=== PATIENT | female | born 1950 | race Caucasian/White ===

== ENCOUNTER 2023-04-22 09:45 | Outpatient (CLI) | payer MEDICARE, BC, SELFPAY | END 2023-04-22 09:46 | disposition home or self-care (01) | LOC: NFLDREF 04-30 05:47 | PROVIDERS: Visit Provider Physician Assistant | DX: R31.9 Hematuria, unspecified (principal); N39.0 Urinary tract infection, site not specified | CPT/HCPCS: 87086; 87186 ==

== ENCOUNTER 2024-09-27 17:29 | Outpatient (CLI) | payer MEDICARE, BC, SELFPAY | END 2024-09-27 17:30 | disposition home or self-care (01) | LOC: NFLDUCREF 17:29 | DX: R10.32 Left lower quadrant pain (principal) | CPT/HCPCS: 87086 ==

== ENCOUNTER 2025-03-22 11:01 | Emergency (ER) | payer MEDICARE, BC, SELFPAY ==
--- OUTSIDE RECORDS SUMMARY | 2025-03-22 11:04 | XMS_ITS | Clinical Summary ---
Author Organization [facility] Address [address] [place] [address] Care Team Providers Care Supervisor Force Adjustment Name Role Phone Other-None Unavailable Unavailable Staff, Other Clinical Unavailable UnavailLiliana Bloom Primary Care Provider [phone] Allergies No known active allergies Medications ASPIRIN 81 MG TAB, DELAYED RELEASEIndicatio ns:Other abnormal glucose take 1 tablet (81 mg) by oral route once daily 0 8 Active CALCIUM 500 + D (D3) 500 MG-125 UNIT TAB take one daily 0 9 Active blood-glucose meterIndications :Controlled type 2 diabetes mellitus with complication, without long-term current use of insulin (HC) As directed. Dispense meter, test strips, lancets covered by pt ins. E11.9 NIDDM type II - Test 1 time/day 1 Device 0 Active nitroglycerin (NITROSTAT) 0.4 mg sublingual tabletIndication s:Stable angina PLACE 1 TABLET UNDER THE TONGUE EVERY 5 MINUTES NEEDED 25 Tablet 3 4 Active blood sugar diagnostic (Contour Next Test Strips) stripIndications :Controlled type 2 diabetes mellitus with complication, without long-term current use of insulin (HC) USE TO TEST BLOOD GLUCOSE ONCE DAILY DIRECTED. 100 Each 3 5 Active atenoloL (TENORMIN) 50 mg tabletIndication s:Stable angina,HTN (hypertension) Take 1 Tablet (50 mg) by mouth once daily. 90 Tablet 3 5 Active hydroCHLOROthiaz filomena 25 mg tabletIndication s:HTN (hypertension) Take 1 Tablet (25 mg) by mouth once daily. 90 Tablet 3 5 Active metFORMIN (GLUCOPHAGE XR) 500 mg Extended-Release tabletIndication s:Controlled type 2 diabetes mellitus with complication, without long-term current use of insulin (HC) Take 2 Tablets (1,000 mg) by mouth once daily with evening meal. 180 Tablet 3 5 Active omeprazole 20 mg tabletIndication s:Gastroesophage al reflux disease, unspecified whether esophagitis present Take 1 Tablet (20 mg) by mouth once daily before a meal. 90 Tablet 3 5 Active simvastatin (ZOCOR) 10 mg tabletIndication s:Controlled type 2 diabetes mellitus with complication, without long-term current use of insulin (HC) Take 1 Tablet (10 mg) by mouth at bedtime. 90 Tablet 2 5 Active lancetsIndicatio ns:Controlled type 2 diabetes mellitus with complication, without long-term current use of insulin (HC) Test 1 times per day. 200 Each 5 Active alendronate (FOSAMAX) 70 mg tabletIndication s:Osteopenia with high risk of fracture Take 1 Tablet (70 mg) by mouth once a week in the morning. Take on empty stomach with full glass of water. Do not lie down for 1 hr. 12 Tablet 3 5 Active losartan (COZAAR) 25 mg tabletIndication s:Primary hypertension Take 1 Tablet (25 mg) by mouth once daily. 90 Tablet 3 5 Active lisinopriL (PRINIVIL; ZESTRIL) 5 mg tabletIndication s:HTN (hypertension) Take 1 Tablet (5 mg) by mouth once daily. 30 Tablet 5 03/08/20 25 Discontinu ed(*Allerg ic/Adverse Rxn/Side Effects) Active Problems Problem Noted Date Diagnosed Date Chronic diarrhea 2024 Controlled type 2 diabetes m ellitus with complication, without long-term current use of insulin 01/07/2022 Osteopenia 11/28/2015 Overview (11/28/2015): On DXA 2010 Cardiac angina 11/16/2012 Primary hypertension 11/23/2006 Overview (11/23/2006): 1990 Esophageal reflux 11/23/2006 Overview (11/23/2006): 2001 Benign neoplasm of colon 11/23/2006 Overview (11/24/2021): Colonoscopy 06/2011 polyp, repeat in 5 years Colonoscopy 09/2016 polyp repeat in 5 years Colonoscopy 11/2021 diverticulosis, repeat in 7 years, colowrap Resolved Problems Problem Noted Date Diagnosed Date Resolved Date Diabetes mellitus due to und erlying condition with other specified complication, without long-term current use of insulin 05/05/2023 025 Other abnormal glucose 11/23/200610/06 Encounters Date Type Department Care Team Description 02/28/2025 1:45 PM CDT [facility] [address] [facility] [place] [facility] 02/28/2025 Travel 02/26/2025 Travel 02/06/2025 1:10 PM CDT Phone Office Visit [facility] [place] [address] Liliana Sen PA Medication Management (Patients has questions about fosamax after her bone scan.) 02/06/2025 Travel 02/01/2025 Travel 01/29/2025 Telephone [facility] [address] Liliana Sen PA Refill Request; MICROLET LANCETS 01/23/2025 9:00 AM CDT Ancillary Procedure [facility] [address] 01/23/2025 Travel 01/19/2025 Travel 01/17/2025 8:15 AM CDT Office Visit [facility] [place] [address] Liliana Sen PA Medicare ANNUAL (subsequent) Visit (Fasting) 01/17/2025 7:40 AM CDT Ancillary Procedure [facility] [place] [address] 01/17/2025 Travel 2025 Travel 01/04/2025 Refill Rust [address] [facility] [place] [address] Liliana Sen PA Refill Request (Lisinopril) 01/01/2025 Refill Rust [address] [place] [address] Liliana Sen PA Refill Request (Simvastatin) from Last 3 Months Immunizations Immunization Administration Dates Next Due AMB INFLUENZA IIV3 (AGE 65+ YRS) PF (Flu Clinic Only) 03/28/2019 Amb Influenza, Inactivated A IIV4 (Age 65+ Years) Preserv Free 03/19/2020 COVID-19 VACCINE SPIKEVAX (M ODERNA 50MCG/0.5ML) 12YO+ PFS 05/25/2023 COVID-19 vaccine (Pfizer-Bio NTech 30mcg/0.3mL) 12YO+ BIVALENT PF, MDV 04/06/2022 COVID-19 vaccine (Pfizer-Bio NTech 30mcg/0.3mL) 12YO+ SADIE-SUCROSE PF, MDV 11/05/2021 COVID-19 vaccine (Pfizer-Bio NTech 30mcg/0.3mL) PF, MDV 03/26/2021,09/17/2020,08/27/2020 Influenza A (H1N1), Inactivated 06/19/2009 Influenza, IIV3 (Age 6-35 mos) 03/09/2011,2008 Influenza, IIV3 (Age >=3 years) 03/11/20 15,03/14/2014,03/13/2013,03/07,03/03/2010 Influenza, Inactivated AIIV4 (Age 65+ Years) Preserv Free 03/05/2023,04/06/2022 Influenza, Inactivated IIV3 (Age 65+ Years) Preserv Free 03/01/2024 Influenza, Whole Virus 03/18/2017 Pneumococcal Conj 20-valent (Prevnar 20) 06/23/2024 Pneumococcal Poly,23-Valent (Pneumovax) 12/01/2017 Pneumococcal conj 13-Valent (Prevnar 13) 11/24/2016 RSV, Recombinant ADJ Reconst ituted (Arexvy 120MCG/0.5mL) 06/29/2023 Td (Age >=7 Years) 12/21/2003 Tdap 01/14/2023,11/16/2012 Zoster (Shingrix-RZV, recombinant) 12/10/2022, Zoster (Zostavax-ZVL, live) 02/25/2012 Family History Medical History Relation Name Comments Diabetes Brother 1 J Luis Other Brother 1 J Luis left leg below knee amputation due to amputation Pancreatitis Brother 1 J Luis Hypertension Brother 2 Thiago Crohn's disease Daughter 1 Laurence severe, 12 i nches of colon removed Preeclampsia Daughter 1 Laurence Crohn's disease Daughter 2 Marielena mild Nephrolithiasis Daughter 2 Marielena requiring bradley rgery Other Daughter 2 Marielena unusual cervica l cells Cancer-colon Father Diabetes Father Hypertension Father Cancer-breast Maternal Aunt Allergies Mother Dementia Mother Diabetes Mother Stroke Mother 10/2012 Other Other 1 first cousin wi th spondylosis Other Other 2 7 out of 9 sibl ings with HTN Cancer-breast Sister 1 Nayeli Diabetes Sister 1 Nayeli pre-diabetes Panic attack Sister 1 Nayeli Uterine cancer Sister 1 Nayeli chemo and rad iation Diabetes Sister 2 Lo 3 rd sister wit h diabetes Parkinsonism Sister 2 Lo Diabetes Sister 3 Antonella pre-diabetes Thyroid Disease Sister 3 Antonella 0ldest siste r Coronary artery disease Sister 4 Kenyatta s/p CABG x5 Diabetes Sister 4 Kenyatta Heart attack Sister 4 Kenyatta Rheum arthritis Sister 4 Kenyatta Stroke Sister 4 Kenyatta stent placed No Known Problems Sister 5 Juana Hypertension Sister 6 Winsome Panic attack Sister 6 Winsome Hypertension Son Riley Other Son Riley something with heart, ?oversized possibly Cancer-ovarian No Family History Relation Name Status Comments Brother 1 J Luis Alive Brother 2 Thiago Alive Daughter 1 Laurence Alive Daughter 2 Marielena Alive Father Maternal Aunt Mother Other 1 Other 2 Sister 1 Nayeli Alive Sister 2 Lo Alive Sister 3 Antonella Alive Sister 4 Kenyatta Alive Sister 5 Juana Alive Sister 6 Winsome Alive Son Riley Alive Social History Tobacco Use Types Packs/Day Years Used Date Smoking Tobacco: Never Smokeless Tobacco: Never Tobacco Cessation:Counseling Given: No Alcohol Use Standard Drinks/Week Comments Not Currently 0 (1 standard drink = 0.6 oz pur e alcohol) occasional wine PHQ-2 Answer Date Recorded PHQ-2 TOTAL SCORE 0 01/17/2025 Social Connections Answer Date Recorded Do you often feel lonely or isolated from those around you? 0 10/02/2024 Financial Resource Strain Answer Date R ecorded Difficulty of Paying Living Expenses 3 10/02/2024 Difficulty of Paying Living Expenses Not on file 10/02/2024 Food Insecurity Answer Date Recorded Do you worry your food will run out before you are able to buy more? 1 10/02/2024 Transportation Needs Answer Date Record ed Does lack of transportation keep you from medica l appointments? 1 10/02/2024 Does lack of transportation keep you from work, meetings or getting things that you need? 1 10/02/2024 Housing Stability Answer Date Recorded What is your housing situation today? 1 10/02/2024 Utilities Answer Date Recorded Do you have trouble paying f or utilities (for example, heat, electricity, water, phone)? 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 Gender Identity Female 03/02/2025 2:12 PM CDT Sexual Orientation Not on file Occupation Industry Job Start Date Job End Date Retired Not on file Not on file Not on file Travel History Travel Start Travel End [place] 02/19/2025 02/23/2025 Obstetrics History Para Term AB IAB SAB Ectopic Multiple Livin g Live Births 3 3 Date Outcome GA Total Labor Labor/2nd/3rd Weight Sex Type Anes PTL Mary A1 A5 Name Clin Last Filed Vital Signs Vital Sign Reading Time Taken Comments Blood Pressure 118/74 01/17/2025 8:06 AM CDT Pulse 61 01/17/2025 8:06 AM CDT Temperature 36.6 C (97.8 F) 12/29/2018 8:01 AM CDT Respiratory Rate - - Oxygen Saturation 98% 01/17/2025 8:06 AM CDT Inhaled Oxygen Concentration - - Weight 66.2 kg (146 lb) 01/17/2025 8:06 AM CDT Height 156 cm (5' 1.42) 2024 8:13 AM CDT Body Mass Index 27.21 2024 8:13 AM CDT Plan of Treatment Upcoming Encounters Date Type Department Care Team (Late st Contact Info) Description 03/29/2025 8:30 AM CDT Orders Only Rust [address] [place] [address] Lab, [place] Health Maintenance Due Date Last Done Comments BMI (ht and wt on same day) for age 18+ 01/11/2025 2024, 01/08/2023, 01/07/2022, Additional history exists Influenza Vaccine (#1) 2025 , 03/05/2023, 04/06/2022, Additional history exists Depression screening for age 12+ 01/17/2026 01/17/2025, 01/13/2024, 2024, Additional history exists Mammogram for age 45-75 01/17/2026 01/18/20, 2024, 01/06/2023, Additional history exists Medicare Wellness for age 65+ 01/18/2026 01/17/2025, 2024, 01/08/2023, Additional history exists Colonoscopy through age 75 11/24/202811/24, 11/24/2021, 09/28/2016, Additional history exists Lipids for age 45-75 01/17/2030 01/17/2025, 2024, 01/08/2023, Additional history exists Tetanus booster 01/14/2033 01/14/2023, 11/05, 12/21/2003 Hepatitis C screening for age 18-79 Completed 11/16/2014 Zoster (shingles) series for age 50+ Completed 12/10/2022, 09/02/2022, 02/25/2012 RSV vaccine for adults or Completed 06/29/2023 Pneumococcal series for age 50+ Completed 06/23/2024, 12/01/2017, 11/24/2016 COVID-19 vaccine series Completed 12/23/19, 03/01/2024, 05/25/2023, Additional history exists DEXA/DXA scan for age 65+ Completed 2024, 01/08/2022, 12/12/2015, Additional history exists Hepatitis B series for 19+ Aged Out N o longer eligible based on patient's age to complete this topic Procedures Procedure Name Priority Date/Time Associated Diagnosis Comments VITAMIN D 25 (DEFICIENCY) Routine 02/28/2025 1:43 PM CDT Osteopenia with high risk of fracture XR DXA BONE DENSITY 2 SITES AXIAL Routine 01/23/2025 9:07 AM CDT Osteopenia of multiple sites LIPID PANEL W REFLEX MEASURED LDL Routine 01/17/2025 9:04 AM CDT Stable angina BASIC METABOLIC PANEL Routine 01/17/2025 9:04 AM CDT HTN (hypertension) URINE ALBUMIN TO CREATININE RATIO, RANDOM Routine 01/17/2025 9:03 AM CDT Controlled type 2 diabetes mellitus with complication, without long-term current use of insulin (HC) HEMOGLOBIN A1C MONITORING (POCT) Routine 01/17/2025 9:03 AM CDT Controlled type 2 diabetes mellitus with complication, without long-term current use of insulin (HC) XR MAMMO KHUSHBU BILAT SCREEN Routine 01/17/2025 7:53 AM CDT Visit for screening mammogram COLONOSCOPY SCREENING Routine 11/24/2021 12:00 AM CDT History of colon polyps ANTI HCV Routine 11/16/2014 9:06 AM CDT Need for hepatitis C screening test from Last 3 Months or Most Recently Relevant to Health Maintenance Results * VITAMIN D 25 (DEFICIENCY) (02/28/2025 1:43 PM CDT) VITAMIN D,25-OH,TOTAL,IA 66 30 - 100 ng/mL 03/01/2025 2:52 AM CDT [facility] Comment: Vitamin D Status 25-OH Vitamin D: Deficiency: <20 ng/mL Insufficiency: 20 - 29 ng/mL Optimal: > or = 30 ng/mL For 25-OH Vitamin D testing on patients on D2-supplementation and patients for whom quantitation of D2 and D3 fractions is required, the QuestAssureD(TM) 25-OH VIT D, (D2,D3), LC/MS/MS is recommended: order code [id number] (patients >2yrs). See Note 1 Note 1 For additional information, please refer to http://education.[employer].Kedzoh/faq/EGX585 (This link is being provided for informational/ educational purposes only.) Blood BLOOD SPECIMEN / Unknown [facility] / Unknown 02/28/2025 1:43 PM CDT 02/28/2025 1:43 PM CDT us Liliana ZENDEJAS SEND OUTS Final Res ult [facility] [address] [place] [address], * (ABNORMAL) XR DXA BONE DENSITY 2 SITES AXIAL (01/23/2025 9:07 AM CDT) Anatomical Region Laterality Modality Spine, HIPS, HIPL, HIPR Other Impressions 01/24/2025 7:50 AM CDT Osteopenia. RECOMMENDATIONS: The National Osteoporosis Foundation recommends pharmacologic treatment for patients with T-scores of -2.5 or less, patients with prior history of fragility fractures, or patients with 10-year probability of greater than 3% at hips or greater than 20% of suffering major osteoporotic fractures. Recommend continued optimization of calcium and vitamin D intake through dietary means and/or supplementation and regular exercise. Consider pharmacologic therapy for osteopenia with increased fracture risk. Follow-up bone density reading in 2 years if therapy initiated to assess therapeutic efficacy. Yola Locke PA-C [employer] [facility] 01/24/2025 Narrative 01/24/2025 7:50 AM CDT For Patients: Results are automatically released to your [employer] account once available, in compliance with federal regulations. This means that you may see your results before your provider has had a chance to review them. Please allow 2-3 business days for your provider to comment on the results. XR DXA Bone Mineral Density (BMD) EXAM LOCATION: [facility] [address] [facility] [address] PATIENT NAME: Nga Mccoy DATE OF : 1950 EXAM DATE: 01/23/2025 REQUESTING PROVIDER: Liliana Sen PA GENDER AT : female HEIGHT: 5' 1.42 (2024) WEIGHT: 146 lb (01/17/2025) MENOPAUSAL STATUS: Postmenopausal RACE/ETHNICITY: White RISK FACTORS: Family History of Hip Fracture (parental) -MOTHER FX PELVIS and White Race CURRENT MEDICATION FOR BONE LOSS: NONE INDICATION: Follow-up of existing osteopenia COMPARISON DATE(S): 2021 DXA scans are compared to prior studies for a patient only when the two (or more) studies were performed on the same scanner. It is not possible to compare data generated on one scanner to data from another because there are not standards in DXA equipment. This applies even if the two scanners are made by the same carpenter packing. PROCEDURE: Dual-energy x-ray absorptiometry performed with routine technique. Reporting is completed in the form of a T-score. The T-score represents the standard deviation from peak bone mass based on young healthy adult. A Z-score is used for diagnosis in premenopausal women, and for men under the age of 50. FINDINGS: RESULT LUMBAR SPINE L1 - L4 BMD: 1.257 g/cm2 T-Score: + 0.5 Z-Score: + 2.2 Change from prior in 2021: Decrease 2.9%. RESULTS FEMUR Left femoral neck BMD: 0.880 g/cm2 T-Score: - 1.1 Z-Score: + 0.7 Change from prior in 2021: Decrease 1.5%. Right femoral neck BMD: 0.786 g/cm2 T-Score: - 1.8 Z-Score: + 0.0 Change from prior in 2021: Decrease 6.9%. Left hip BMD: 0.999 g/cm2 T-Score: - 0.1 Z-Score: + 1.6 Change from prior in 2021: Decrease 0.9%. Right hip BMD: 0.931 g/cm2 T-Score: - 0.6 Z-Score: + 1.0 Change from prior in 2021: Decrease 2.7%. WHO criteria: Normal: T-score at or above -1 SD Osteopenia: T-score between -1.1 and -2.4 SD Osteoporosis: T-score at or below -2.5 SD FRAX RISK CALCULATION (USED FOR OSTEOPENIA ONLY): 10-year probability of major osteoporotic fracture: 20.2%. 10-year probability of hip fracture: 9.8%. Liliana ZENDEJAS DEXA Final Res ult * (ABNORMAL) LIPID PANEL W REFLEX MEASURED LDL (01/17/2025 9:04 AM CDT) Pathologist [facility] CHOLESTEROL, TOTAL 124 <200 mg/dL [facility] HDL CHOLESTEROL 55 > OR = 50 mg/dL [facility] TRIGLYCERIDES 177(H) <150 mg/dL [facility] LDL-CHOLESTEROL 44 mg/dL (calc) [facility] Comment: Reference range: <100 Desirable range <100 mg/dL for primary prevention; <70 mg/dL for patients with CHD or diabetic patients with > or = 2 CHD risk factors. LDL-C is now calculated using the Adrian-Tan calculation, which is a validated novel method providing better accuracy than the Friedewald equation in the estimation of LDL-C. Adrian SS et al. SILVANA. 2013;310(19): 6969-4421 (http://education.[employer]/faq/OJH731) CHOL/HDLC RATIO 2.3 <5.0 (calc) [facility] NON HDL CHOLESTEROL 69 <130 mg/dL (calc) [facility] Comment: For patients with diabetes plus 1 major ASCVD risk factor, treating to a non-HDL-C goal of <100 mg/dL (LDL-C of <70 mg/dL) is considered a therapeutic option. Blood BLOOD SPECIMEN / Unknown 01/17/2025 9:04 AM CDT 01/17/2025 9:05 AM CDT Liliana ZENDEJAS CHEMISTRY Final Res ult [employer] [address] [place] [address], [facility] [address] [place] [address] * (ABNORMAL) BASIC METABOLIC PANEL (01/17/2025 9:04 AM CDT) [facility] GLUCOSE 121(H) 65 - 99 mg/dL [facility] Comment: Fasting reference interval For someone without known diabetes, a glucose value between 100 and 125 mg/dL is consistent with prediabetes and should be confirmed with a follow-up test. UREA NITROGEN (BUN) 19 7 - 25 mg/dL [facility] CREATININE 0.86 0.60 - 1.00 mg/dL [facility] EGFR 71 > OR = 60 mL/min/1. 73m2 [facility] BUN/CREATININE RATIO SEE NOTE: 6 - 22 (calc) [facility] Comment: Not Reported: BUN and Creatinine are within reference range. SODIUM 138 135 - 146 mmol/L [facility] POTASSIUM 3.9 3.5 - 5.3 mmol/L [facility] CHLORIDE 97(L) 98 - 110 mmol/L [facility] CARBON DIOXIDE 27 20 - 32 mmol/L [facility] ELECTROLYTE BALANCE 14 7 - 17 mmol/L (calc) [facility] CALCIUM 10.5(H) 8.6 - 10.4 mg/dL [facility] Blood BLOOD SPECIMEN / Unknown 01/17/2025 9:04 AM CDT 01/17/2025 9:05 AM CDT us Liliana ZENDEJAS CHEMISTRY Final Res ult [employer] [address] [place] [address], [facility] [address] [place] [address] * URINE ALBUMIN TO CREATININE RATIO, RANDOM (01/17/2025 9:03 AM CDT) ALB RAND URINE <12.0 mg/L 01/17/2025 3:[address] [facility] CREATININE,URINE 0.31 g/L 01/18/20 3:[address] [facility] ALBUMIN TO CREATININE RATIO,RAND UR 01/17/2025 3:[address] [facility] Comment:Urine Albumin below measurement range, unable to calculate. Urine URINE SPECIMEN / Unknown Non-Blood / Unknown 01/17/2025 9:03 AM CDT 01/17/2025 9:03 AM CDT Narrative [facility] - 01/17/2025 3:59 PM CDT If Albumin to Creatinine Ratio is elevated, consider the following: Elevations seen with incipient nephropathy associated with diabetes mellitus or hypertension. Stress, exercise,hematuria, and urinary tract infection may also produce elevated results. If clinically indicated, confirm with 24 Hour Albumin to Creatinine Ratio. Liliana ZENDEJAS URINE Final Res ult [facility] [address] [place] [address], * (ABNORMAL) HEMOGLOBIN A1C MONITORING (POCT) (01/17/2025 9:03 AM CDT) Pathologist [facility] POC HEMOGLOBIN A1C 6.3(H) <6.0 % OF TOTAL HGB [facility] Comment: Any point of care results exhibiting inconsistency with the patient's clinical status should be repeated using a different testing method. Blood BLOOD SPECIMEN / Unknown 01/17/2025 9:03 AM CDT 01/17/2025 9:04 AM CDT Liliana ZENDEJAS CHEMISTRY Final Res ult [facility] [address] [place] [address], [place] [phone] [facility] [address] [place] [address] * XR MAMMO KHUSHBU BILAT SCREEN (01/17/2025 7:53 AM CDT) Anatomical Region Laterality Modality BREASTS, Breast Left, Breast Right Bilateral Mammography Impressions 01/17/2025 1:39 PM CDT There is no radiographic evidence for malignancy. Recommend annual mammograms. MAMMOGRAM ASSESSMENT: ACR 1 Negative PATIENTS: You will also receive a letter with your examination results in an easy to read format. If you have questions about your results, please contact your referring provider. Narrative 01/17/2025 1:39 PM CDT For Patients: As a result of the Century Cures Act, medical imaging exams and procedure reports are released immediately into your electronic medical record. You may view this report before your referring provider. If you have questions, please contact your health care provider. XR MAMMO KHUSHBU BILAT SCREEN [[id number]] CLINICAL HISTORY: This is an asymptomatic 75 y.o. patient. INDICATION FOR EXAM: Mammogram Screening. TECHNIQUE: CC and MLO views were obtained. This study was evaluated with the assistance of Computer-Aided Detection. Breast Tomosynthesis was used in interpretation. COMPARISON FILM: Yes [facility]23 [facility] FINDINGS: There are scattered areas of fibroglandular density. There are no dominant masses, suspicious micro calcifications or areas of architectural distortion. Liliana ZENDEJAS MAMMO Final Res ult * COLONOSCOPY SCREENING (11/24/2021 12:00 AM CDT) Kim ZENDEJAS GI PROCEDURE ORD Joycelyn l Result * ANTI HCV (11/16/2014 9:06 AM CDT) HEPATITIS C ANTIBODY Non-Reacti ve Non-Reacti ve 11/16/2014 1:18 PM CDT [facility] Blood specimen (specimen) BLOOD SPECIMEN / Unknown [facility]fly / Unknown 11/16/2014 9:06 AM CDT 11/16/2014 9:06 AM CDT Narrative [facility] - 11/16/2014 1:18 PM CDT Antibodies to HCV not detected; does not exclude the possibility of exposure to HCV. 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 Dentistry - General 11/24/16 Staff, Other Clinical . Ophthalmology 11/24/16
--- OUTSIDE RECORDS SUMMARY | 2025-03-22 11:04 | XMS_ITS | Clinical Summary ---
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 [facility] Allerg[facility] No known active allergies Medications raNITIdine (ZANTAC) 150 MG tabletIndication s:Osteoarthritis of finger of left hand Take 150 mg by mouth two times a day. Active atenolol (TENORMIN) 50 MG tabletIndication s:Osteoarthritis of finger of left hand Take 50 mg by mouth daily. Active hydroCHLOROthiaz filomena (ORETIC) 25 MG tabletIndication s:Osteoarthritis of finger of left hand Take 25 mg by mouth daily. Active metFORMIN (GLUCOPHAGE) 500 MG tabletIndication s:Osteoarthritis of finger of left hand Take 500 mg by mouth two times a day with meals. Active aspirin, enteric-coated 81 MG enteric coated tabletIndication s:Osteoarthritis of finger of left hand Take 81 mg by mouth daily. Active Active Problems No known active problems Social History Tobacco Use Types Packs/Day Years Used Date Smoking Tobacco: Never Smokeless Tobacco: Never Comments Unknown Sex and Gender Information Value Date Recorded Sex Assigned at Not on file Legal Sex Female 8:43 AM CDT Gender Identity Not on file Sexual Orientation Not on file Last Filed Vital Signs Vital Sign Reading Time Taken Comments Blood Pressure - - Pulse - - Temperature - - Respiratory Rate - - Oxygen Saturation - - Inhaled Oxygen Concentration - - Weight 68.9 kg (152 lb) 01/10/2018 12:33 PM CDT Height 156.2 cm (5' 1.5) 01/10/2018 12:33 PM CD T Body Mass Index 28.26 01/10/2018 12:33 PM CDT Plan of Treatment Health Maintenance Due Date Last Done Comments Colon Cancer Screening Plan Due 1950 Hep C Screening (Preventive Services) 1950 Medicare Annual Wellness Visit 1950 Mammogram 1950 Cholesterol 01/13/1996 Zoster/Shingles Vaccine (2 of 3) 04/21/2012 02/25/2012 Dexa 01/13/2016 DTaP/Tdap/Td Vaccine (2 - Tdap) 11/16/2022 11/16/2012, 12/21/2003 COVID-19 Vaccine (2 - season) 2025 08/27/2020 Influenza Vaccine (#1) 2025 , 03/28/2019, 03/16/2018, Additional history exists RSV Vaccine (1 - 1-dose 75+ series) 2026 Pneumococcal Vaccine 50+ Yrs Completed 12/01/2017, 11/24/2016 HepA Vaccine Aged Out No longer eligi ble based on patient's age to complete this topic HepB Vaccine Aged Out No longer eligi ble based on patient's age to complete this topic Hib Vaccine Aged Out No longer eligi ble based on patient's age to complete this topic IPV (Polio) Vaccine Aged Out No longe r eligible based on patient's age to complete this topic MCV4 Vaccine Aged Out No longer eligi ble based on patient's age to complete this topic Meningococcal B Vaccine Aged Out No l onger eligible based on patient's age to complete this topic Insurance MEDICARE MANAGED CARE BS [employer] [place] [employer] Care Teams 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
[2025-03-22 11:06] VITALS: BP 180/76; PULSE 71; RESP 18; TEMP 36.3; O2SAT 97; BMI 27.4
--- NOTE | 2025-03-22 12:00 | ED.GENADULT ---
HPI - General Adult General Date Seen: 03/22/25 Chief complaint: Hypertension Stated complaint: High BP Time Seen by Provider: 03/22/25 11:45 Source: patient Mode of arrival: ambulatory Limitations: no limitations History of Present Illness HPI narrative: Patient is a 75-year-old male presenting to emergency department for blood pressure she has a history of hypertension was switched from lisinopril to losartan last week due to a dry cough. She states her blood pressures typically in 120 is while she is lisinopril. She states she checks her blood pressure once or twice a week and when she is hydrated today was the 160s. She was concerned about this and kept checking it multiple times a blood pressure went up to 201 systolic. Did that she came to the emergency department to be evaluated. In triage her blood pressure is 180/76. She denies chest pain, shortness of breath, abdominal pain, headache, lightheadedness, dizziness, weakness, numbness, vision changes. She states she feels completely asymptomatic but want to make sure she is okay. States she did have issues. Her blood pressure under control in the past. Denies any history of heart disease, kidney disease. Does have diabetes. Related Data Home Medications ?Medication ?Instructions ?Recorded ?Confirmed aspirin 81 mg tablet,delayed 81 mg PO QDAY 04/22/23 03/22/25 release atenolol 50 mg tablet 50 mg PO DAILY 04/22/23 03/22/25 calcium 600 mg (as 1 tab PO QDAY 04/22/23 03/22/25 carbonate)-vitamin D3 10 mcg (400 unit) tablet (Calcium with Vitamin D) hydrochlorothiazide 25 mg tablet 25 mg PO DAILY 04/22/23 03/22/25 metformin 500 mg tablet,extended 500 mg PO BID 04/22/23 03/22/25 release 24 hr omeprazole 20 mg capsule,delayed 20 mg PO DAILY 04/22/23 03/22/25 release simvastatin 10 mg tablet 10 mg PO QPM 09/27/24 03/22/25 alendronate 70 mg tablet 70 mg PO 03/22/25 losartan 25 mg tablet 25 mg PO DAILY 03/22/25 03/22/25 Allergies Allergy/AdvReac Type Severity Reaction Status Date / Time No Known Drug Allergies Allergy Verified 03/22/25 11:13 Review of Systems Status of ROS: Reports: 10 or more systems reviewed and unremarkable except as noted in History and below Exam Narrative: Exam Narrative: Const: Well-nourished, Well-developed, in no distress Eyes: PERRL, no conjunctival injection, and symmetrical lids HENT: Atraumatic external nose and ears. Moist mucous membranes. Neck: Symmetric, trachea midline, No thyromegaly. CVS: RRR, No murmurs or gallops. Peripheral pulses 2+ and equal in all extremities RESP: Unlabored respiratory effort. Clear to auscultation bilaterally. GI: Nontender/Nondistended, No rebound or guarding. MSK:Extremities w/o deformity, Normal Active ROM Skin: Warm, Dry. No rashes or lesions. Neuro: Normal Muscle tone, No focal neurological deficits. Psych: Awake, Alert, & Oriented x3. Appropriate mood and affect. Const: Vital Signs, click to edit/add: Vital Signs - 24 hr 03/22/25 11:06 Temperature 97.3 F L Pulse Rate [Right Pulse Oximeter] 71 Respiratory Rate 18 Blood Pressure [Ri ght Upper Arm] 180/76 H Pulse Oximetry 97 Oxygen Delivery Me thod Room Air Course Vital Signs Vital signs: Initial Vital Signs Temperature 97.3 F L 03/22/25 11:06 Temperature Source Temporal Artery Scan 03/22/25 11:06 Pulse Rate 71 03/22/25 11:06 Pulse Rhythm Regular 03/22/25 11:06 Pulse Strength 3+ Normal 03/22/25 11:06 Respiratory Rate 18 03/22/25 11:06 Blood Pressure 180/76 H 03/22/25 11:06 Blood Pressure Mean 110 H 03/22/25 11:06 Blood Pressure Position Sitting 03/22/25 11:06 Pulse Oximetry 97 03/22/25 11:06 Oxygen Delivery Method Room Air 03/22/25 11:06 Vital Signs Temperature 97.3 F L 03/22/25 11:06 Pulse Rate 71 03/22/25 11:06 Respiratory Rate 18 03/22/25 11:06 Blood Pressure 180/76 H 03/22/25 11:06 Pulse Oximetry 97 03/22/25 11:06 Oxygen Delivery Method Room Air 03/22/25 11:06 Temperature 97.3 F L 03/22/25 11:06 Pulse Rate 71 03/22/25 11:06 Respiratory Rate 18 03/22/25 11:06 Blood Pressure 180/76 H 03/22/25 11:06 Pulse Oximetry 97 03/22/25 11:06 Oxygen Delivery Method Room Air 03/22/25 11:06 Medical Decision Making MDM Narrative Medical decision making narrative: Patient is a 75-year-old female presenting for asymptomatic hypertension. Thighs blood pressure in the emergency department has been 180/76. Per ACEP guidelines no workup is indicated for asymptomatic hypertension the blood pressure below 210/120. I expect clean the need for her to follow-up with her primary care provider and all further treatment and workup in the emergency department is not indicated. She is agreeable to this plan and will be discharged. Discharge Plan Discharge Clinical Impression: Hypertension Qualifiers: Hypertension type: unspecified Qualified Code(s): I10 - Essential (primary) hypertension Patient Disposition: Home, Self-Care Condition: Stable Instructions: Hypertension (ED) Additional Instructions: Please have close follow-up with the primary care provider about adjusting your blood pressure medication. Recommend calling them today to let them now. There likely will have you monitor your blood pressure for the next few days in preparation for your appointment at previously scheduled for next week. Prescriptions: No Action metformin 500 mg tablet extended release 24 hr 500 mg PO BID hydrochlorothiazide 25 mg tablet 25 mg PO DAILY atenolol 50 mg tablet 50 mg PO DAILY omeprazole 20 mg capsule,delayed release(DR/EC) 20 mg PO DAILY aspirin 81 mg tablet,delayed release (DR/EC) 81 mg PO QDAY calcium carbonate-vitamin D3 [Calcium with Vitamin D] 600 mg-10 mcg (400 unit) tablet 1 tab PO QDAY simvastatin 10 mg tablet 10 mg PO QPM alendronate 70 mg tablet 70 mg PO losartan 25 mg tablet 25 mg PO DAILY Follow Up/Referrals: Provider,Not a Local [Primary Care Provider, Family Practice] Stand Alone Forms: [employer] Info Instructions
== END 2025-03-22 12:17 | disposition home or self-care (01) ==
LOC: ED 12:06
PROVIDERS: Emergency Provider Student in an Organized Health Care Education/Training Program; PCP Student in an Organized Health Care Education/Training Program
DX: I10 Essential (primary) hypertension (principal)
CPT/HCPCS: 99282; 99283